=== PATIENT | male | born 1960 ===

== ENCOUNTER → 2017-11-19 | Outpatient (REF) ==
[2017-11-19 19:16] LABS: PSA-TOTAL 0.37 ng/mL (0-4); THYROID STIMULATING HORMONE 2.02 uIU/mL (0.465-4.680)
== END ==
LOC: ZLAB.WCH 18:08
PROVIDERS: Internal Medicine
DX: Z01.89 Encounter for other specified special examinations (principal)
CPT/HCPCS: G0103